=== PATIENT | female | born 1995 | race Caucasian/White ===

== ENCOUNTER → 2018-11-01 | Outpatient (REF) | payer OTHER ==
[2018-11-01 13:09] LABS: CHLAMYDIA DNA AMPLIFICATION NEGATIVE (NEGATIVE); GC DNA AMPLIFICATION NEGATIVE (NEGATIVE)
== END ==
LOC: M SFHCLERA 10:00
PROVIDERS: ATTEND Nurse Practitioner Family
DX: R10.9 Unspecified abdominal pain (principal)
CPT/HCPCS: 81002; 81025; 87086; 87661; G0463

== ENCOUNTER 2019-09-19 20:56 | Inpatient (IN) | payer OTHER ==
[~2019-09-19] VITALS: Ht 162.6 cm; Wt 65.4 kg
[2019-09-19] MEDS ORDERED: DERMABOND TOPICAL SKIN ADHESIVE TOP ONE (22:00)
[2019-09-19] MEDS ORDERED: ACETAMINOPHEN TAB 650MG DOSE (2X325MG) PO ONE (22:00)
[2019-09-19 22:07] LABS: HEMATOCRIT 37.5 % (36.0-47.0); HEMOGLOBIN 11.9 g/dl (12.0-15.5); MEAN CORPUSCULAR HEMOGLOBIN 26.4 pg (27.0-33.0); MEAN CORPUSCULAR HGB CONC 31.7 g/dl (32.0-36.5); MEAN CORPUSCULAR VOLUME 83.1 fl (80.0-96.0); PLATELET COUNT, AUTOMATED 254 10^3/uL (150-450); RED BLOOD COUNT 4.51 10^6/uL (4.00-5.40); WHITE BLOOD COUNT 7.3 10^3/uL (4.0-10.0)
[2019-09-19 22:14] LABS: AMPHETAMINES LEVEL URINE NEGATIVE (NEGATIVE); BARBITURATES URINE NEGATIVE (NEGATIVE); BENZODIAZEPINES URINE NEGATIVE (NEGATIVE); CANNABINOIDS URINE NEGATIVE (NEGATIVE); COCAINE METABOLITE URINE NEGATIVE (NEGATIVE); METHADONE URINE NEGATIVE (NEGATIVE); OPIATES URINE NEGATIVE (NEGATIVE); PHENCYCLIDINE URINE NEGATIVE (NEGATIVE)
[2019-09-19 22:29] LABS: HCG, SERUM QUALITATIVE NEGATIVE (NEGATIVE)
[2019-09-19 22:35] LABS: ACETAMINOPHEN LEVEL < 2.0 UG/ML (10.0-30.0); ALBUMIN 3.9 GM/DL (3.2-5.2); ALT/SGPT 26 U/L (12-78); BILIRUBIN,DIRECT < 0.1 MG/DL (0.0-0.2); BILIRUBIN,TOTAL 0.2 MG/DL (0.2-1.0); BLOOD UREA NITROGEN 12 MG/DL (7-18); CALCIUM LEVEL 8.9 MG/DL (8.5-10.1); CARBON DIOXIDE LEVEL 27 MEQ/L (21-32); CHLORIDE LEVEL 108 MEQ/L (98-107); CREATININE FOR GFR 0.63 MG/DL (0.55-1.30); ETHYL ALCOHOL (ETHANOL) 0.005 % (0.000-0.010); GLOMERULAR FILTRATION RATE > 60.0 (>60); GLUCOSE, FASTING 80 MG/DL (70-100); POTASSIUM SERUM 4.1 MEQ/L (3.5-5.1); SALICYLATE LEVEL < 1.7 MG/DL (5.0-30.0); SODIUM LEVEL 141 MEQ/L (136-145); TOTAL PROTEIN 7.2 GM/DL (6.4-8.2)
[2019-09-19] MEDS ORDERED: VITMTA PO (23:02)
[2019-09-19] MEDS ORDERED: GABA-843 PO (23:02)
[2019-09-19] MEDS ORDERED: ZZZQ50LI PO (23:02)
[2019-09-19] MEDS ORDERED: RA M10TA PO (23:02)
[2019-09-20] MEDS ORDERED: traZODone 50 MG TAB PO PRN (00:30)
[2019-09-20] MEDS ORDERED: ACETAMINOPHEN TAB 650MG DOSE (2X325MG) PO PRN (00:30)
[2019-09-20] MEDS ORDERED: OLANZapine ORAL DISINTEGRATING TAB 5MG PO PRN (00:30)
[2019-09-20] MEDS ORDERED: MOM 30ML SUSPENSION UDC PO PRN (00:30)
[2019-09-20] MEDS ORDERED: MAALOX 30 ML SUSP *UDC PO PRN (00:30)
[2019-09-20 05:32] VITALS: BP 121/66
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
[2019-09-20] MEDS: NICOTINE 21MG/24HR 1 EA TRANSDERMAL TD SCH (09:28)
--- NOTE | 2019-09-20 16:04 | HPEPDOC ---
[facility] Medical History & Physical Date of Admission Sep 20, 2019 Date of Service: Sep 20, 2019 Attending Physician: Iesha Hawk MD History and Physical HISTORY OF PRESENT ILLNESS: The patient is a 23-year-old female with past medical history of anxiety, anxiety attacks, depression, insomnia, asthma, body dysmorphic syndrome who presented to [facility] emergency room after being brought to emergency room by police after cutting her wrist. The patient states that she has been having increased anxiety, tearfulness, and feeling less interested in doing things that bring her srinivas than normal. She cut her wrist because she states that she "one it to feel differently than I was feeling". The patient states that she was in the bathroom when her came to get her. She denied suicidal ideation, homicidal ideation, auditory or visual hallucinations, bre, hopelessness, anger, appetite changes. She also denies shortness of breath, cough, fever, chest pains. The patient has a history of cutting herself in the past with prior suicide attempts in her teens. She also admits to decreased energy levels, difficulty sleeping. She states she's been trying to see someone for her anxiety and depression for over a year now on [place]; however, they "keep giving her the runaround". She said she was being [place]. On examination today the patient has 6 noticeable lacerations with one large laceration the left wrist, it appears to have been tended to medically. She complains of some mild pain in this area. She currently denies homicidal or suicidal ideations and states that she wants to go home to see her children. REVIEW OF SYSTEMS: Negative except for what is mentioned above PAST MEDICAL HISTORY: 1. Anxiety, history of anxiety attacks 2. Depression 3. Insomnia 4. Asthma 5. Body dysmorphic syndrome 6. History suicidal attempts with cutting, hospitalized at age 15 PAST SURGICAL HISTORY: 1. 2 2. Breast reduction 3. Tonsillectomy FAMILY HISTORY: Unknown family history as the patient was adopted SOCIAL HISTORY: Smoker of one half pack per day for over 5 years, denies drug use. Drinks wine 12 glasses 3 times a week. Patient is currently unemployed. She does not have someone she follows with her behavior health currently but does see a primary care provider. ALLERGIES: Please see below. HOME MEDICATIONS: Please see below. PHYSICAL EXAMINATION: CONSTITUTIONAL: No acute distress, resting comfortably, AAO x 3 EYES: PERRLA, EOM intact HENT, MOUTH: Normocephalic, atraumatic, moist mucous membranes, NECK: SUPPLE, no JVD, no lymphadenopathy, no carotid bruit CV: Regular rate and rhythm, S1S2 normal, no murmurs/rubs/gallops RESPIRATORY: Clear to auscultation bilaterally, no rales/rhonchi/wheezes GI: BS positive in 4 quadrants, soft, nontender, nondistended, no rebound or gu arding, no organomegaly : Deferred MUSCULOSKELETAL: extremities have normal ROM. No cyanosis, clubbing, swelling, joint deformity, extremity edema INTEGUMENTARY: 6 lacerations on the left wrist, one which appears larger and approximately 1-1/2 inches long. Others are superficial. These wounds appear clean, nonsuppurative, no increased erythema but some scabs. Otherwise no rashes, no lesions, no erythema NEUROLOGIC: Cranial Nerves II-XII are intact, no focal deficits PSYCHIATRIC: Mood and affect are normal LABORATORY DATA: Please see below IMAGING: None ASSESSMENT: The patient is a 23-year-old female admitted for unspecified mood disorder, suicidal ideation. PLAN: 1. Unspecified mood disorder, suicidal ideation. -Treatment per primary psychiatric team. -Wound care for left wrist wounds 2. Depressive disorder, suicidal ideation. -Treatment per primary psychiatric team 3. Insomnia 4. Asthma. -Does not appear to be an exacerbation currently -Can add albuterol PRN 5. Body dysmorphic syndrome DISPOSITION: At this time we'll sign off as most of this patient's issues are p rimarily psychiatric. If we are needed at any time please do not hesitate to contact again to reassess. Vital Signs Vital Signs Date Time Temp Pulse Resp B/P (MAP) Pulse Ox O2 Delivery O2 Flow Rate FiO2 09/20/19 09:56 Room Air 09/20/19 05:32 97.9 91 16 121/66 (84) 97 Laboratory Data Labs 24H Laboratory Tests 2 09/19/19 21:35: Nucleated Red Blood Cells % (auto) 0.0, Anion Gap 6L, Glomerular Filtration Rate > 60.0, Calcium Level 8.9, Total Bilirubin 0.2, Direct Bilirubin < 0.1, As partate Amino Transf (AST/SGOT) 19, Alanine Aminotransferase (ALT/SGPT) 26, Alkaline Phosphatase 73, Total Protein 7.2, Albumin 3.9, Albumin/Globulin Ratio 1.2, Thyroid Stimulating Hormone (TSH) 2.080, Human Chorionic Gonadotropin, Qual NEGATIVE, Salicylates Level < 1.7L, Acetaminophen Level < 2.0L, Ethyl Alcohol Level 0.005 09/19/19 21:40: Urine Opiates Screen NEGATIVE, Urine Methadone Screen NEGATIVE, Urine Barbiturates Screen NEGATIVE, Urine Phencyclidine Screen NEGATIVE, Urine Amphetamines Screen NEGATIVE, Urine Benzodiazepines Screen NEGATIVE, Urine Cocaine Metabolite Screen NEGATIVE, Urine Cannabinoids Screen NEGATIVE CBC/BMP Laboratory Tests 09/19/19 21:35 Home Medications Scheduled Diphenhydramine HCl (Zzzquil) 50 Mg/30 Ml Liquid, 50 MG PO QHS Gabapentin (Gabapentin) 300 Mg Capsule, 300 MG PO BID Melatonin (Melatonin) 10 Mg Tablet, 10 MG PO QHS Multivitamins (Thera M Plus Tablet) 1 Each Tablet, 1 TAB PO DAILY Allergies Coded Allergies: lurasidone (Verified Allergy, Severe, tongue swelling, 09/19/19) A-FIB/CHADSVASC A-FIB History Current/History of A-Fib/PAF?: No Current PO Anticoag Therapy: No Age/Risk Factor Scoring CHADSVASC: CHADSVASC Response (Comments) Value Age Risk Factor Age < 65 years old 0 Gender Risk Factor Female 1 Hx of CHF No 0 Hx of HTN No 0 Hx of Stroke/TIA/or VTE No 0 Hx of Diabetes No 0 Hx of Vascular Disease No 0 Total 1 Treatment Treatment ordered: NONE Other anticoagulant ordered: None needed Iesha Hawk MD Sep 20, 2019 16:04
[2019-09-20 18:06] VITALS: BP 131/72
[2019-09-20] MEDS ORDERED: RAMELTEON 8 MG TAB (ROZEREM) PO SCH (21:00)
[2019-09-21 06:35] VITALS: BP 108/60
[2019-09-21] MEDS: NICOTINE 21MG/24HR 1 EA TRANSDERMAL TD SCH (09:00)
--- NOTE | 2019-09-21 10:28 | MHDSPDOC ---
[facility] Discharge Summary Discharge Summary DATE OF ADMISSION: Sep 20, 2019 at 00:28 DATE OF DISCHARGE: Sep 21, 2019 at 13:40 DISCHARGE DIAGNOSES: PTSD chronic REASON FOR ADMISSION: 23-year-old woman admitted for cutting CONSULTANTS INVOLVED:[ None (basic hospitalist screening)] TREATMENT AND PROGRESS ON THE UNIT : Medication changes: resumed on home medications, patient, ambivalent about changes to medicines due to previous trials of interest presents antipsychotics Behavior on unit: friendly and amenable, observe for 48 hours with no suicidality Treatment attendance: attended well Notable issues on presentation: none State on discharge: [improved] DISCHARGE ASSESSMENT: The patient a 23 year old woman, with likely PTSD, presented to [facility], where they observe for 48 hours, where they demonstrate no suicidal ideation or other self-harm behaviors appeared to be euthymic. Legal status considerations: The patient at the time of discharge did not meet criteria for involuntary admission/extension due to having a [normal] mental status exam, [fair] insight into the situation, They are engaged in the discharge process, as well as being friendly and amenable in behavioral control and havent been engaging in any observed concerning behavior or ideation recently. They decline voluntary extension/admission at this time and must be discharged in good candida, as Im unable to make a case for holding the patient against their will. They may have historical risk factors of admissions and other interactions with psychiatry however, those are not modifiable from a clinical perspective. The patient will need to be discharged in good candida. MENTAL STATUS EXAMINATION ON DISCHARGE: [General: Well dressed with good hygiene Speech: Spontaneous and fluid Thought processes: Linear and logical Thought content: Future orientated Abstract reasoning, and computation: Intact Description of associations: Intact Description of abnormal or psychotic thoughts:Denies any suicidal or homicidal ideation. Denies any auditory or visual hallucinations. Does not appear to be responding to internal stimuli. Does not appear to be endorsing any bizarre or paranoid ideation. Judgment: fair Insight: fair Orientation: Alert and orientated 3 Recent and remote memory: Intact Attention span and concentration: Intact Fund of knowledge: Adequate Mood: "okay" Affect: Euthymic with a full range] PLAN/FOLLOWUP ARRANGEMENTS: Follow up appointments made (PCP and MH in 5 days of D/C date) and safety plan completed. Safety Planning aspects completed prior to discharge [Family contact completed, educated on safe practices, instructed on removal and mitigation of dangerous means] [RN reviewed crisis hotline information and other aspects to empower patient to access care in interim before next appointment.] The amount of time spent in the coordination of care for this patient was appr oximately 30 minutes. Vital Signs/I&Os Vital Signs Date Time Temp Pulse Resp B/P (MAP) Pulse Ox O2 Delivery O2 Flow Rate FiO2 09/21/19 06:35 97.9 14 108/60 (76) 98 Room Air 09/20/19 18:06 106 Medications Scheduled Diphenhydramine HCl (Zzzquil) 50 Mg/30 Ml Liquid, 50 MG PO QHS, (Reported) Gabapentin (Gabapentin) 300 Mg Capsule, 300 MG PO BID, (Reported) Melatonin (Melatonin) 10 Mg Tablet, 10 MG PO QHS, (Reported) Multivitamins (Thera M Plus Tablet) 1 Each Tablet, 1 TAB PO DAILY, (Reported) Allergies Coded Allergies: lurasidone (Verified Allergy, Severe, tongue swelling, 09/19/19) LAY DORANTES DO Sep 21, 2019 10:28
== END 2019-09-21 13:40 | disposition home or self-care (01) | DRG 882 ==
LOC: M ED 20:56 → M ED INP 09-20 00:28 → M PSY 09-20 04:36
PROVIDERS: ADMIT Psychiatry & Neurology Psychiatry; ATTEND Psychiatry & Neurology Addiction Medicine
DX: F43.12 Post-traumatic stress disorder, chronic (principal); F33.9 Major depressive disorder, recurrent, unspecified; S61.512A Laceration without foreign body of left wrist, initial encounter; X78.1XXA Intentional self-harm by knife, initial encounter; Y92.002 Bathroom of unspecified non-institutional (private) residence as the place of occurrence of the external cause; Y99.8 Other external cause status; Y93.89 Activity, other specified; Z79.899 Other long term (current) drug therapy; Z88.8 Allergy status to other drugs, medicaments and biological substances; J45.909 Unspecified asthma, uncomplicated; G47.00 Insomnia, unspecified; F17.200 Nicotine dependence, unspecified, uncomplicated

== ENCOUNTER → 2019-10-13 | Emergency (ER) | payer OTHER ==
[~2019-10-13] MED LIST: BUPR1SUB33 SL; CHARCOAL ACTIVATED LIQUID 25 GM/120 ML BTL As Ordered ONE; CHARCOAL ACTIVATED LIQUID 25 GM/120 ML BTL ONE; GABA-843 PO; NICO21PAT TD; RA M10TA PO; TRAZ-252 PO; VITMTA PO; ZZZQ50LI PO
[2019-11-10 12:43] LABS: INR 0.9; PARTIAL THROMBOPLASTIN TIME 27.4 SECONDS (25.0-38.4); PROTHROMBIN TIME 13.3 SECONDS (11.8-14.0)
[2019-11-10 22:11] LABS: BASO % 0.7 % (0.0-1.0); EOS # 0.3 10^3/uL (0.0-0.5); EOS % 4.7 % (0.0-3.0); HEMATOCRIT 39.2 % (36.0-47.0); HEMOGLOBIN 12.5 g/dl (12.0-15.5); LYMPH % 33.3 % (24.0-44.0); MEAN CORPUSCULAR HEMOGLOBIN 26.7 pg (27.0-33.0); MEAN CORPUSCULAR HGB CONC 31.9 g/dl (32.0-36.5); MEAN CORPUSCULAR VOLUME 83.6 fl (80.0-96.0); MONO # 0.5 10^3/uL (0.0-0.8); MONO % 9.1 % (0.0-5.0); NEUTROPHILS # 3.1 10^3/uL (1.5-8.5); PLATELET COUNT, AUTOMATED 253 10^3/uL (150-450); RED BLOOD COUNT 4.69 10^6/uL (4.00-5.40); WHITE BLOOD COUNT 5.9 10^3/uL (4.0-10.0)
--- NOTE | 2019-11-25 08:15 | ECGEPIP ---
SINUS RHYTHM NORMAL ECG NO PREVIOUS SEE SCANNED DOWNTIME REPORT MTDD
[2019-11-27 17:40] LABS: ACETAMINOPHEN LEVEL 75.7 UG/ML (10.0-30.0); ALT/SGPT 27 U/L (12-78); AMPHETAMINES LEVEL URINE NEGATIVE (NEGATIVE); BARBITURATES URINE NEGATIVE (NEGATIVE); BENZODIAZEPINES URINE NEGATIVE (NEGATIVE); BILIRUBIN,DIRECT 0.1 MG/DL (0.0-0.2); BILIRUBIN,TOTAL 0.4 MG/DL (0.2-1.0); BLOOD UREA NITROGEN 15 MG/DL (7-18); CALCIUM LEVEL 8.9 MG/DL (8.5-10.1); CANNABINOIDS URINE NEGATIVE (NEGATIVE); CARBON DIOXIDE LEVEL 29 MEQ/L (21-32); CHLORIDE LEVEL 106 MEQ/L (98-107); CK-MB VALUE MASS 3.8 NG/ML (<3.6); COCAINE METABOLITE URINE NEGATIVE (NEGATIVE); CPK CREATINE PHOSPHOKINASE 460 U/L (26-192); CREATININE FOR GFR 0.58 MG/DL (0.55-1.30); ETHYL ALCOHOL (ETHANOL) < 0.003 % (0.000-0.010); GLOMERULAR FILTRATION RATE > 60.0 (>60); GLUCOSE, FASTING 82 MG/DL (70-100); MB/CK RELATIVE INDEX 0.83 (< OR =4); METHADONE URINE NEGATIVE (NEGATIVE); OPIATES URINE NEGATIVE (NEGATIVE); PHENCYCLIDINE URINE NEGATIVE (NEGATIVE); POTASSIUM SERUM 3.8 MEQ/L (3.5-5.1); SODIUM LEVEL 138 MEQ/L (136-145); THYROID STIMULATING HORMONE 0.348 uIU/ML (0.358-3.740); TOTAL PROTEIN 7.1 GM/DL (6.4-8.2); TROPONIN I < 0.02 NG/ML (< 0.10)
[2019-11-27 17:52] LABS: HCG, SERUM QUALITATIVE NEGATIVE (NEGATIVE)
== END | disposition home or self-care (01) ==
LOC: M ED 16:46
DX: T50.992A Poisoning by other drugs, medicaments and biological substances, intentional self-harm, initial encounter (principal); R45.851 Suicidal ideations; F33.9 Major depressive disorder, recurrent, unspecified; F41.9 Anxiety disorder, unspecified; F43.10 Post-traumatic stress disorder, unspecified; G25.81 Restless legs syndrome; Z79.899 Other long term (current) drug therapy
CPT/HCPCS: 36415; 80048; 80076; 80307; 82550; 82553; 84443; 84484; 84703; 85025; 85610; 85730; 93005; 99284; G0480

== ENCOUNTER 2019-12-10 13:04 | Inpatient (IN) | payer OTHER ==
[~2019-12-10] VITALS: Ht 162.6 cm; Wt 67.3 kg
[~2019-12-10 13:04] MED LIST changes: -BUPR1SUB33 SL; -CHARCOAL ACTIVATED LIQUID 25 GM/120 ML BTL As Ordered ONE; -CHARCOAL ACTIVATED LIQUID 25 GM/120 ML BTL ONE; -NICO21PAT TD; -TRAZ-252 PO
[2019-12-10 14:05] LABS: HEMOGLOBIN 12.9 g/dl (12.0-15.5); MEAN CORPUSCULAR HEMOGLOBIN 27.5 pg (27.0-33.0); MEAN CORPUSCULAR HGB CONC 31.5 g/dl (32.0-36.5); MEAN CORPUSCULAR VOLUME 87.4 fl (80.0-96.0); PLATELET COUNT, AUTOMATED 280 10^3/uL (150-450); RED BLOOD COUNT 4.69 10^6/uL (4.00-5.40)
[2019-12-10 14:24] LABS: AMPHETAMINES LEVEL URINE NEGATIVE (NEGATIVE); BARBITURATES URINE NEGATIVE (NEGATIVE); BENZODIAZEPINES URINE NEGATIVE (NEGATIVE); CANNABINOIDS URINE POSITIVE (NEGATIVE); COCAINE METABOLITE URINE NEGATIVE (NEGATIVE); METHADONE URINE NEGATIVE (NEGATIVE); OPIATES URINE NEGATIVE (NEGATIVE); PHENCYCLIDINE URINE NEGATIVE (NEGATIVE)
[2019-12-10 14:29] LABS: ACETAMINOPHEN LEVEL < 2.0 UG/ML (10.0-30.0); ALBUMIN 4.2 GM/DL (3.2-5.2); ALT/SGPT 35 U/L (12-78); BILIRUBIN,DIRECT 0.1 MG/DL (0.0-0.2); BILIRUBIN,TOTAL 0.3 MG/DL (0.2-1.0); BLOOD UREA NITROGEN 7 MG/DL (7-18); CARBON DIOXIDE LEVEL 27 MEQ/L (21-32); CHLORIDE LEVEL 103 MEQ/L (98-107); CREATININE FOR GFR 0.64 MG/DL (0.55-1.30); ETHYL ALCOHOL (ETHANOL) < 0.003 % (0.000-0.010); GLOMERULAR FILTRATION RATE > 60.0 (>60); GLUCOSE, FASTING 81 MG/DL (70-100); POTASSIUM SERUM 3.8 MEQ/L (3.5-5.1); SALICYLATE LEVEL < 1.7 MG/DL (5.0-30.0); SODIUM LEVEL 137 MEQ/L (136-145); THYROID STIMULATING HORMONE 0.485 uIU/ML (0.358-3.740); TOTAL PROTEIN 7.4 GM/DL (6.4-8.2)
[2019-12-10] MEDS ORDERED: ACETAMINOPHEN 325 MG TAB PO ONE (15:45)
[2019-12-10] MEDS ORDERED: MAALOX 30 ML SUSP *UDC PO PRN (17:45)
[2019-12-10] MEDS ORDERED: ACETAMINOPHEN TAB 650MG DOSE (2X325MG) PO PRN (17:45)
[2019-12-10] MEDS ORDERED: LORazepam 2 MG TAB PO PRN (17:45)
[2019-12-10] MEDS ORDERED: traZODone 50 MG TAB PO PRN (17:45)
[2019-12-10] MEDS ORDERED: MOM 30ML SUSPENSION UDC PO PRN (17:45)
[2019-12-10 19:02] VITALS: BP 135/88
[2019-12-10 20:10] VITALS: BP 120/80
[2019-12-10 20:11] VITALS: BP 120/80
[2019-12-10] MEDS ORDERED: hydrOXYzine 50 MG TAB PO ONE (20:15)
[2019-12-10] MEDS ORDERED: NICOTINE 21MG/24HR 1 EA TRANSDERMAL TD PRN (20:15)
[2019-12-10] MEDS: THIAMINE 100 MG TAB PO SCH (20:35)
[2019-12-10] MEDS: FOLIC ACID 1 MG TAB PO SCH (20:35)
[2019-12-10] MEDS: MULTIVITAMINS/MINERALS THERAP 1 TAB PO SCH (20:35)
[2019-12-10 20:53] LABS: HCG, SERUM QUALITATIVE NEGATIVE (NEGATIVE)
[2019-12-11 05:30] VITALS: BP 121/73
[2019-12-11 06:27] VITALS: BP 121/73
[2019-12-11] MEDS ORDERED: INFLUENZA QUADRIVALENT PF VACCINE 0.5ML SYRINGE IM ONE (09:00)
[2019-12-11] MEDS ORDERED: DOCUSATE SODIUM 100 MG CAP PO PRN (09:30)
[2019-12-11] MEDS: FOLIC ACID 1 MG TAB PO SCH (09:31)
[2019-12-11] MEDS: MULTIVITAMINS/MINERALS THERAP 1 TAB PO SCH (09:31)
[2019-12-11] MEDS: THIAMINE 100 MG TAB PO SCH ×2 (09:31→20:29)
--- NOTE | 2019-12-11 10:27 | MHHPEPDOC ---
[facility] History & Physical History and Physical DATE OF ADMISSION: Dec 10, 2019 at 17:36 Subjective HPI: Patient presents to [facility] after multiple stressors. She reports having increased anxiety, panic, worry, and a setting with multiple stressors including multiple difficulties with her and two young children. She reports she increasingly got more anxious and distorted, becoming depressed, and subsequently started cutting herself. Her called the police where she was brought in and admitted. She reports that she is still fee ling down, hopeless, and fatigued with much anxiety. She doesn't report that her PTSD symptoms of trauma flashbacks nightmares and specific trauma related triggers are particularly active today than they had been prior. Reports other than that, no other acute stressors. MEDICAL HISTORY: She reportedly has a history of PTSD and was recently admitted to our unit several months ago. Past medical history includes multiple trials of antidepressants, antipsychotics, mood stabilizers failed. Most recently was saying DR. Hernandez at [facility] was recently trying Effexor, and last seven days made her feel worse and suicidal. She has multiple histories of attempts in the past. FAMILY HISTORY: Family history: no change from previous admission. SOCIAL HISTORY - LIVING SITUATION: Social history is as above. Lives with and two children. Reports one child has autism and feels overwhelmed by this. SOCIAL HISTORY - SMOKING: Substance use: reports cannabis use but denies any other illicit drug use. Objective Appearance: Hygiene fair. Affect: Dysthymic. Constricted. Speech: Normal volume. Spontaneous and Fluid. Normal rate. Thought Form: Linear and goal directed. Thought Content: Some intermittent suicidal thoughts. Judgement: Poor. Insight: Poor. Assessment F43.12 Post-traumatic stress disorder, chronic F33.9 Major depressive disorder, recurrent, unspecified Plan Associations are intact. Denies auditory or visual hallucinations. Try low dose Buprenorphine. Discussed with patient link the various options, risks benefits and potential trial effects. Will attempt to coordinate with outpatient provider, Dr. Hernandez as main link. The stay is 1-4 days. Will continue on 9.39 status, likely with extension. Treatment priorities are one, risk for suicide 2 with ineffective coping. Vital Signs Vital Signs Date Time Temp Pulse Resp B/P (MAP) Pulse Ox O2 Delivery O2 Flow Rate FiO2 12/11/19 06:27 95.8 79 12 121/73 (89) Room Air 12/10/19 20:11 100 Laboratory Data 24H Labs Laboratory Tests 2 12/10/19 13:29: Nucleated Red Blood Cells % (auto) 0.0, Anion Gap 7L, Glomerular Filtration Rate > 60.0, Calcium Level 9.0, Total Bilirubin 0.3, Direct Bilirubin 0.1, Aspartate Amino Transf (AST/SGOT) 24, Alanine Aminotransferase (ALT/SGPT) 35, Alkaline Phosphatase 61, Total Protein 7.4, Albumin 4.2, Albumin/Globulin Ratio 1.3, Thyroid Stimulating Hormone (TSH) 0.485, Human Chorionic Gonadotropin, Qual NEGATIVE, Salicylates Level < 1.7L, Urine Opiates Screen NEGATIVE, Urine Methadone Screen NEGATIVE, Acetaminophen Level < 2.0L, Urine Barbiturates Screen NEGATIVE, Urine Phencyclidine Screen NEGATIVE, Urine Amphetamines Screen NEGATIVE, Urine Benzodiazepines Screen NEGATIVE, Urine Cocaine Metabolite Screen NEGATIVE, Urine Cannabinoids Screen POSITIVEH, Ethyl Alcohol Level < 0.003 CBC/BMP Laboratory Tests 12/10/19 13:29 Medications No Active Prescriptions or Reported Meds Allergies Coded Allergies: lurasidone (Verified Allergy, Severe, tongue swelling, 09/19/19) LAY DORANTES DO Dec 11, 2019 10:27
[2019-12-11] MEDS ORDERED: ALBUTEROL 90 MCG/ACT 8GM HFA INHALER INH PRN (11:00)
--- NOTE | 2019-12-11 11:01 | HPEPDOC ---
[facility] Medical History & Physical Date of Admission Dec 10, 2019 Date of Service: Dec 11, 2019 History and Physical CHIEF COMPLAINT: Suicidal ideation HISTORY OF PRESENT ILLNESS: Mrs. Montes is a 24-year-old female with anxiety, depression, and history of suicidal attempts who is here in the inpatient mental health unit for suicide ideation. Today she feels well. She denies any fever or chills, lightheadedness or dizziness, chest pain, palpitations, dyspnea, abdominal pain, diarrhea, or dysuria. She tells me that she has constipation which has been chronic. In the past, she would take MiraLAX every day. She stopped taking MiraLAX because she was having daily bowel movements. Currently, she has not had a bowel movement recently. She does not remember when her last bowel movement was. PAST MEDICAL HISTORY: 1. Constipation. 2. Depression 3. Anxiety 4. Insomnia 5. Asthma 6. Body dysmorphic syndrome 7. History of suicide attempts with cutting, hospitalized at the age of 15 PAST SURGICAL HISTORY: 1. 2 2. Breast reduction 3. Tonsillectomy SOCIAL HISTORY: Tobacco use: She is a current smoker. Smoked on and off for 5 years. 1/2 ppd. She also vapes ETOH: As of recently, she tells me she's been drinking more alcohol. Last alcohol drink was yesterday morning Illicit drug use: She occasionally uses marijuana FAMILY HISTORY: Looking through the chart, as previously documented that her family history was unknown because she was adopted. I spoke with the patient she told me that her mother had ovarian cancer and thyroid cancer. She tells that she does not know her father's medical history. She tells me both parents are living ALLERGIES: Please see below. REVIEW OF SYSTEMS: CONSTITUTIONAL: Denies any fever or chills. Denies lightheadedness or dizziness. ENT: Denies sore throat. Denies dysphagia. RESPIRATORY: Denies shortness of breath. Denies cough. CARDIOVASCULAR: Denies chest pain. Denies palpitations. GASTROINTESTINAL: Reports constipation. Denies abdominal pain. Denies diarrhea. GENITOURINARY: Denies dysuria. CUTANEOUS: Denies rashes. MUSCULOSKELETAL: Denies muscle weakness. NEUROLOGICAL: Denies neuropathy. Denies paresthesias. PSYCHOLOGICAL: Reports depression HOME MEDICATIONS: Please see below. PHYSICAL EXAMINATION: VITAL SIGNS: Temperature 95.8, pulse 79, respiratory rate 12, blood pressure 121/73, pulse oximetry 100% on room air. GENERAL: Comfortable, in no apparent distress. HEENT: Head normocephalic/atraumatic, EOMI, sclera clear. NECK: Supple, no JVD. RESPIRATORY: Lungs clear to auscultation bilaterally, no rales, wheeze or rhonchi. CARDIOVASCULAR: Regular rate and rhythm. ABDOMEN: Soft, mild tenderness in the left lower quadrant (most likely secondary to constipation), no guarding or rebound tenderness. Normal bowel sounds. MUSCLE SKELETAL: Muscle strength 5/5 in all extremities. NEUROLOGICAL: CN 312 grossly intact, no focal deficits noted. PSYCHOLOGICAL: Normal mood and affect LABORATORY DATA: See below. MICROBIOLOGY: Please see below. ASSESSMENT and PLAN: 1. Suicidal ideation Patient being managed in the inpatient mental health unit 2. Constipation Formerly on MiraLAX, stopped taking due to daily bowel movements Does not remember when last bowel movement was We'll restart MiraLAX daily. Also added Colace as needed. 3. Cannabinoid use Urine tox positive for cannabis 4. Asthma Does not appear to be in exacerbation We will add on albuterol as needed Thank you for letting us be a part of patient care. We will sign off now. If the re is any other questions or concerns do not hesitate to contact us. Vital Signs Vital Signs Date Time Temp Pulse Resp B/P (MAP) Pulse Ox O2 Delivery O2 Flow Rate FiO2 12/11/19 06:27 95.8 79 12 121/73 (89) Room Air 12/10/19 20:11 100 Laboratory Data Labs 24H Laboratory Tests 2 12/10/19 13:29: Nucleated Red Blood Cells % (auto) 0.0, Anion Gap 7L, Glomerular Filtration Rate > 60.0, Calcium Level 9.0, Total Bilirubin 0.3, Direct Bilirubin 0.1, Aspartate Amino Transf (AST/SGOT) 24, Alanine Aminotransferase (ALT/SGPT) 35, Alkaline Phosphatase 61, Total Protein 7.4, Albumin 4.2, Albumin/Globulin Ratio 1.3, Thyroid Stimulating Hormone (TSH) 0.485, Human Chorionic Gonadotropin, Qual NEGATIVE, Salicylates Level < 1.7L, Urine Opiates Screen NEGATIVE, Urine Methadone Screen NEGATIVE, Acetaminophen Level < 2.0L, Urine Barbiturates Screen NEGATIVE, Urine Phencyclidine Screen NEGATIVE, Urine Amphetamines Screen NEGATIVE, Urine Benzodiazepines Screen NEGATIVE, Urine Cocaine Metabolite Screen NEGATIVE, Urine Cannabinoids Screen POSITIVEH, Ethyl Alcohol Level < 0.003 CBC/BMP Laboratory Tests 12/10/19 13:29 Home Medications No Active Prescriptions or Reported Meds Allergies Coded Allergies: lurasidone (Verified Allergy, Severe, tongue swelling, 09/19/19) A-FIB/CHADSVASC A-FIB History Current/History of A-Fib/PAF?: No TRISTAN BLANTON DO Dec 11, 2019 11:01
[2019-12-11] MEDS: MIRALAX *UNIT DOSE* 17GM PACKET PO SCH (11:05)
[2019-12-11 16:17] VITALS: BP 117/74
[2019-12-11] MEDS ORDERED: BUPRENORPHINE/NALOXONE 2-0.5MG SUBLINGUAL TABLET(SUBOXONE) SL ONE (16:30)
[2019-12-11 20:27] VITALS: BP 130/81
[2019-12-11] MEDS: BACITRACIN OINTMENT 30GM TUBE TOP SCH (20:30)
[2019-12-12 06:34] VITALS: BP 102/55
[2019-12-12 08:00] VITALS: BP 122/66
[2019-12-12] MEDS: MIRALAX *UNIT DOSE* 17GM PACKET PO SCH (08:45)
[2019-12-12] MEDS: THIAMINE 100 MG TAB PO SCH ×2 (08:46→20:53)
[2019-12-12] MEDS: MULTIVITAMINS/MINERALS THERAP 1 TAB PO SCH (08:46)
[2019-12-12] MEDS: FOLIC ACID 1 MG TAB PO SCH (08:46)
[2019-12-12] MEDS: BACITRACIN OINTMENT 30GM TUBE TOP SCH ×2 (08:47→20:51)
[2019-12-12] MEDS: BUPRENORPHINE/NALOXONE 2-0.5MG SUBLINGUAL TABLET(SUBOXONE) SL SCH (09:58)
--- NOTE | 2019-12-12 11:20 | MHIPNPDOC ---
[facility] Progress Note Progress Note DATE OF SERVICE: 12/12/19 Subjective HPI: Jyoti presents today for concerns regarding her medication, Trazodone. Patient requesting to be sent home with the nightly prescription of Trazodone. She is getting more sleep and its helping her get better. She was nervous about the medication, but it calmed her down, and shes been talkative and happy since then. Patients nurse gave her handouts about autism for her children. Her child is not connected with [facility] autism program because shes nervous about the program seeing her history and mental health issues. MEDICATIONS: Patient would like to take Trazodone at night as it would help with sleep better at that dosage. Patient tried Buprenorphine yesterday and affirms that it worked well. SOCIAL HISTORY - LIVING SITUATION: Patient has 2 young kids, one of which has autism. While the patient was in [place], she had people who came out to the house to help her child, such as a speech therapist. Patients is iffy about going outside the [employer] programs, and she will have to discuss making the appointments for her child with him. Objective Appearance: Well nourished. Appears to be stated age. Well groomed. Behavior: Pleasant. Engaged. Cooperative with good eye contact. Affect: Full range. Appropriate to context. Mood: Appropriately reactive. Euthymic. Generally good. Speech: Normal rate. Normal volume. Spontaneous and Fluid. Motor: No gross motor abnormalities. Cognition: Alert, Attentive, and Oriented to person, place, time. Memory: No formal testing. No gross abnormalities of short or custodial memory noted during interview. Thought Form: Linear and goal directed. Thought Content: No evidence of aggressive or homicidal ideation. No evidence of suicidal ideation. No thoughts of self harm. No evidence of delusions. Perception: No perceptual abnormalities noted. Judgement: Intact as evidenced by decision making in the recent past. Insight: Good insight into symptoms and treatment options. Assessment F43.12 Post-traumatic stress disorder, chronic F33.9 Major depressive disorder, recurrent, unspecified Plan Continue Buprenorphine Schedule Trazodone at [address] Hernandez for discharge tomorrow. Patient making excellent progress. Vital Signs Vital Signs Date Time Temp Pulse Resp B/P (MAP) Pulse Ox O2 Delivery O2 Flow Rate FiO2 12/12/19 06:34 98.5 59 16 102/55 (71) 100 Room Air Current Medications Current Medications Medications (Trade) Dose Ordered Sig/Mickie Route PRN Reason Start Time Stop Time Status Last Admin Dose Admin Acetaminophen (Tylenol Tab) 650 mg Q6HP PRN PO HEADACHE or DISCOMFORT 12/10/19 17:45 12/12/19 09:41 Al Hydrox/Mg Hydrox/Simethicone (Mylanta) 30 ml Q4HP PRN PO HEARTBURN/INDIGESTION 12/10/19 17:45 Albuterol Sulfate (Proventil, Ventolin Hfa) 2 puff Q4HP PRN INH SHORTNESS OF BREATH 12/11/19 11:00 Bacitracin (Bacitracin Oint) 1 dose BID TOP 12/11/19 21:00 12/12/19 08:47 Buprenorphine/ Naloxone (Suboxone 2/ 0.5mg) 1 tab DAILY SL 12/12/19 09:00 12/12/19 09:58 Docusate Sodium (Colace) 100 mg DAILYPRN PRN PO CONSTIPATION 12/11/19 09:30 Folic Acid (Folic Acid) 1 mg DAILY PO 12/10/19 09:00 12/12/19 08:46 Home Med (Med Rec Complete!) ASDIRECTED XX 12/10/19 15:00 12/10/19 15:11 DC Lorazepam (Ativan) 2 mg ASDIRECTED PRN PO SEE PROTOCOL 12/10/19 17:45 Magnesium Hydroxide (Milk Of Magnesia) 30 ml DAILYPRN PRN PO CONSTIPATION 12/10/19 17:45 Multivitamins (Theragram-M) 1 tab DAILY PO 12/10/19 09:00 12/12/19 08:46 Nicotine (Nicoderm Cq 21mg) 1 patch DAILYPRN PRN TD NICOTINE WITHDRAWAL 12/10/19 20:15 Polyethylene Glycol (Miralax) 1 pkt DAILY PO 12/11/19 09:00 12/12/19 08:45 Thiamine HCl (Thiamine HCl) 100 mg BID PO 12/10/19 21:00 12/13/19 20:59 12/12/19 08:46 Trazodone HCl (Desyrel) 50 mg QHSP PRN PO INSOMNIA 12/10/19 17:45 12/11/19 20:29 Allergies Coded Allergies: lurasidone (Verified Allergy, Severe, tongue swelling, 09/19/19) LAY DORANTES DO Dec 12, 2019 11:20
[2019-12-12 16:00] VITALS: BP 139/73
[2019-12-12 17:48] VITALS: BP 139/73
[2019-12-12] MEDS ORDERED: traZODone 50 MG TAB PO SCH (21:00)
[2019-12-13 06:14] VITALS: BP 107/57
[2019-12-13] MEDS: MIRALAX *UNIT DOSE* 17GM PACKET PO SCH (08:55)
[2019-12-13] MEDS: FOLIC ACID 1 MG TAB PO SCH (08:55)
[2019-12-13] MEDS: MULTIVITAMINS/MINERALS THERAP 1 TAB PO SCH (08:55)
[2019-12-13] MEDS: BACITRACIN OINTMENT 30GM TUBE TOP SCH (08:56)
[2019-12-13] MEDS: BUPRENORPHINE/NALOXONE 2-0.5MG SUBLINGUAL TABLET(SUBOXONE) SL SCH (08:56)
--- NOTE | 2019-12-13 10:44 | MHDSPDOC ---
[facility] Discharge Summary Discharge Summary DATE OF ADMISSION: Dec 10, 2019 at 17:36 DATE OF DISCHARGE: Dec 13, 2019 at 12:45 DISCHARGE DIAGNOSES: F43.10 Post-traumatic stress disorder, unspecified CONSULTANTS INVOLVED:[ None (basic hospitalist screening)] REASON FOR ADMISSION & TREATMENT AND PROGRESS ON THE UNIT : Briana was admitted to the inpatient mental health unit after multiple stressors caused her to cut. No suicidal ideation noted. MEDICATIONS: She was initially tried on Effexor as an outpatient made her suicidal. She was started on low-dose,Buprenorphine after an intensive discussion of the risk- benefits and various treatment options as she would be most likely treated with an MAOI or other dangerous medication. The 2 mg of Buprenorphine helped stabilized her mood and her anxiety vanished. She reported Trazodone is helpful for her sleeping and was continued on 50 mg qhs. MEDICAL HISTORY: Patient has a history of PTSD, trying multiple antidepressants, mood stabilizers, antipsychotics with poor results, as well as long-term outpatient treatment. Reports state that she became more depressed and anxious and was unable to cope the last 6 months. SOCIAL HISTORY - LIVING SITUATION: Patient has an autistic child. She was given resources for her child to help increase her support, which was identified as a major stressor. TESTS: She did well with no behavioral problems and was observed for 3-4 days. DISCHARGE ASSESSMENT[improved] Legal status considerations: The patient at the time of discharge did not meet criteria for involuntary admission/extension due to having a [normal] mental status exam, [fair] insight into the situation, They are engaged in the discharge process, as well as being friendly and amenable in behavioral control and havent been engaging in any observed concerning behavior or ideation recently. They decline voluntary extension/admission at this time and must be discharged in good candida, as Im unable to make a case for holding the patient against their will. They may have historical risk factors of admissions and other interactions with psychiatry however, those are not modifiable from a clinical perspective. The patient will need to be discharged in good candida. MENTAL STATUS EXAMINATION ON DISCHARGE: [General: Well dressed with good hygiene Speech: Spontaneous and fluid Thought processes: Linear and logical Thought content: Future orientated Abstract reasoning, and computation: Intact Description of associations: Intact Description of abnormal or psychotic thoughts:Denies any suicidal or homicidal ideation. Denies any auditory or visual hallucinations. Does not appear to be responding to internal stimuli. Does not appear to be endorsing any bizarre or paranoid ideation. Judgment: fair Insight: fair Orientation: Alert and orientated 3 Recent and remote memory: Intact Attention span and concentration: Intact Fund of knowledge: Adequate Mood: "okay" Affect: Euthymic with a full range] PLAN/FOLLOWUP ARRANGEMENTS: Follow up appointments made (PCP and MH in 5 days of D/C date) and safety plan completed. Safety Planning aspects completed prior to discharge [Medication supplies limited to 3 days with 0 refills to prevent accumulation to OD] [Family contact completed, educated on safe practices, instructed on removal and mitigation of dangerous means] [RN reviewed crisis hotline information and other aspects to empower patient to access care in interim before next appointment.] Close coordination with outpatient provider The amount of time spent in the coordination of care for this patient was approximately 30 minutes. Vital Signs/I&Os Vital Signs Date Time Temp Pulse Resp B/P (MAP) Pulse Ox O2 Delivery O2 Flow Rate FiO2 12/13/19 06:14 98.4 65 15 107/57 (74) 98 Room Air Medications Scheduled Buprenorphine HCl/Naloxone HCl (Buprenorphn-Naloxn 2-0.5 mg Sl) 1 Each Tab.subl, 1 TAB SL DAILY for mood for 3 Days, #3 Trazodone HCl (Trazodone HCl) 50 Mg Tablet, 50 MG PO QHS for sleep for 3 Days, #3 Scheduled PRN Nicotine (Nicotine Patch) 21 Mg Patch.td24, 1 PATCH TD DAILYPRN PRN for NICOTINE WITHDRAWAL for 30 Days, #30 Allergies Coded Allergies: lurasidone (Verified Allergy, Severe, tongue swelling, 09/19/19) LAY DORANTES DO Dec 13, 2019 10:44
[2019-12-13] MEDS ORDERED: BUPR1SUB33 SL (11:23)
[2019-12-13] MEDS ORDERED: TRAZ-252 PO (11:23)
[2019-12-13] MEDS ORDERED: NICO21PAT TD (11:23)
== END 2019-12-13 12:45 | disposition home or self-care (01) | DRG 882 ==
LOC: M ED 13:04 → M ED INP 17:36 → M PSY 18:53
PROVIDERS: ADMIT Psychiatry & Neurology Addiction Medicine; ATTEND Psychiatry & Neurology Addiction Medicine
DX: F43.10 Post-traumatic stress disorder, unspecified (principal); F33.9 Major depressive disorder, recurrent, unspecified; Z91.5 Personal history of self-harm; K59.00 Constipation, unspecified; J45.909 Unspecified asthma, uncomplicated; F17.200 Nicotine dependence, unspecified, uncomplicated; F45.22 Body dysmorphic disorder; Z88.8 Allergy status to other drugs, medicaments and biological substances; Z63.79 Other stressful life events affecting family and household

== ENCOUNTER 2021-07-08 11:02 | Emergency (ER) | payer OTHER ==
[~2021-07-08] VITALS: Ht 165.1 cm; Wt 59.4 kg
[~2021-07-08 11:02] MED LIST changes: +BUPR1SUB33 SL; +GABA-282 PO; -GABA-843 PO; +NICO21PAT TD; +TRAZ-252 PO
[2021-07-08] MEDS ORDERED: ATOM80CA6 (11:39)
[2021-07-08] MEDS ORDERED: TRAZ1TAB14 (11:39)
[2021-07-08] MEDS ORDERED: CLON-412 (11:39)
[2021-07-08] MEDS ORDERED: GABA-283 (11:39)
[2021-07-08] MEDS ORDERED: ACETAMINOPHEN 325 MG TAB PO ONE (13:45)
[2021-07-08 13:49] LABS: BASO % 0.9 % (0.0-1.0); EOS # 0.1 10^3/uL (0.0-0.5); EOS % 1.3 % (0.0-3.0); HEMATOCRIT 39.5 % (36.0-47.0); HEMOGLOBIN 12.6 g/dl (12.0-15.5); LYMPH # 1.6 10^3/uL (1.5-5.0); LYMPH % 35.6 % (24.0-44.0); MEAN CORPUSCULAR HEMOGLOBIN 26.7 pg (27.0-33.0); MEAN CORPUSCULAR HGB CONC 31.9 g/dl (32.0-36.5); MEAN CORPUSCULAR VOLUME 83.7 fl (80.0-96.0); MONO # 0.3 10^3/uL (0.0-0.8); MONO % 7.2 % (2.0-8.0); NEUTROPHILS # 2.5 10^3/uL (1.5-8.5); NEUTROPHILS % 54.8 % (36.0-66.0); PLATELET COUNT, AUTOMATED 227 10^3/uL (150-450); RED BLOOD COUNT 4.72 10^6/uL (4.00-5.40); WHITE BLOOD COUNT 4.6 10^3/uL (4.0-10.0)
[2021-07-08 14:13] LABS: ALBUMIN 4.3 GM/DL (3.2-5.2); ALT/SGPT 33 U/L (12-78); BILIRUBIN,DIRECT 0.1 MG/DL (0.0-0.2); BILIRUBIN,TOTAL 0.3 MG/DL (0.2-1.0); BLOOD UREA NITROGEN 9 MG/DL (7-18); CALCIUM LEVEL 9.6 MG/DL (8.5-10.1); CARBON DIOXIDE LEVEL 28 MEQ/L (21-32); CHLORIDE LEVEL 107 MEQ/L (98-107); CREATININE FOR GFR 0.47 MG/DL (0.55-1.30); GLOMERULAR FILTRATION RATE > 60.0 (>60); GLUCOSE, FASTING 86 MG/DL (70-100); LIPASE 70 U/L (73-393); POTASSIUM SERUM 3.9 MEQ/L (3.5-5.1); SODIUM LEVEL 140 MEQ/L (136-145); TOTAL PROTEIN 7.1 GM/DL (6.4-8.2)
[2021-07-08 14:25] LABS: ERYTHROCYTE SEDIMENTATION RATE 3 mm/hr (0-20)
[2021-07-08 15:21] LABS: GC DNA AMPLIFICATION NEGATIVE (NEGATIVE)
[2021-07-08] MEDS ORDERED: ONDA4TAB6 PO (15:51)
[2021-07-08 16:10] VITALS: BP 120/69
== END 2021-07-08 16:11 | disposition home or self-care (01) ==
LOC: M ED 11:02
DX: R10.32 Left lower quadrant pain (principal); R30.0 Dysuria; R11.0 Nausea; Z88.8 Allergy status to other drugs, medicaments and biological substances

== ENCOUNTER 2021-08-21 10:31 | Day surgery (SDC) | payer OTHER ==
[~2021-08-21] VITALS: Ht 165.1 cm; Wt 58.9 kg
[~2021-08-21 10:31] MED LIST changes: +ACETAMINOPHEN 650 MG SUPP PR ONE; +ATOM80CA6 PO; +CLON-412 PO; +DESI10TA PO; +FLUO10CA18 PO; +GABA-283 PO; +ONDA4TAB6 PO; +TRAZ1TAB14 PO
[2021-08-21 11:04] LABS: HEMATOCRIT 37.7 % (36.0-47.0); HEMOGLOBIN 12.5 g/dl (12.0-15.5); MEAN CORPUSCULAR HEMOGLOBIN 28.2 pg (27.0-33.0); MEAN CORPUSCULAR HGB CONC 33.2 g/dl (32.0-36.5); MEAN CORPUSCULAR VOLUME 85.1 fl (80.0-96.0); PLATELET COUNT, AUTOMATED 224 10^3/uL (150-450); RED BLOOD COUNT 4.43 10^6/uL (4.00-5.40); WHITE BLOOD COUNT 4.2 10^3/uL (4.0-10.0)
[2021-08-21 11:37] LABS: BLOOD UREA NITROGEN 12 MG/DL (7-18); CARBON DIOXIDE LEVEL 26 MEQ/L (21-32); CHLORIDE LEVEL 109 MEQ/L (98-107); CREATININE FOR GFR 0.57 MG/DL (0.55-1.30); GLOMERULAR FILTRATION RATE > 60.0 (>60); GLUCOSE, FASTING 89 MG/DL (70-100); HCG, SERUM QUANTITATIVE < 1.0 MIU/ML; POTASSIUM SERUM 4.5 MEQ/L (3.5-5.1); SODIUM LEVEL 141 MEQ/L (136-145)
[2021-08-21] MEDS ORDERED: LR 1,000 ML IV SCH (12:25)
[2021-08-21] MEDS ORDERED: fentaNYL 100 MCG/2 ML INJECTION As Ordered ONE (14:37)
[2021-08-21] MEDS ORDERED: ONDANSETRON 4MG/2ML VIAL As Ordered ONE (14:38)
[2021-08-21] MEDS ORDERED: MIDAZOLAM INJ 2MG/2ML VIAL (J2250 PER 1MG) As Ordered ONE ×2 (14:38→15:39)
[2021-08-21] MEDS ORDERED: LIDOCAINE 2% 100MG/5ML SDV (FOR ANES.) As Ordered ONE (14:38)
[2021-08-21] MEDS ORDERED: dexameTHASONE 4 MG/ML 1ML VIAL (J1100 PER 1MG) As Ordered ONE (14:38)
[2021-08-21] MEDS ORDERED: propofoL 200 MG/20 ML VIAL As Ordered ONE (14:38)
[2021-08-21] MEDS ORDERED: KETOROLAC 60MG 2ML VIAL As Ordered ONE (14:38)
[2021-08-21] MEDS ORDERED: LEVONORGESTREL 52MG (MIRENA) IUD As Ordered ONE ×2 (15:11→16:10)
[2021-08-21] MEDS ORDERED: ACETAMINOPHEN 650 MG SUPP As Ordered ONE (15:52)
[2021-08-21 17:11] VITALS: BP 102/62
== END 2021-08-21 17:30 | disposition home or self-care (01) ==
LOC: M SDC 10:31
PROVIDERS: ATTEND Obstetrics & Gynecology
DX: N93.9 Abnormal uterine and vaginal bleeding, unspecified (principal); Z30.430 Encounter for insertion of intrauterine contraceptive device; Z12.4 Encounter for screening for malignant neoplasm of cervix; Z79.899 Other long term (current) drug therapy; Z88.8 Allergy status to other drugs, medicaments and biological substances
CPT/HCPCS: 36415; 58300; 80048; 84702; 85027; G0123; J1100; J1885; J2250; J2405; J3010; J7298